=== PATIENT | male | born 1990 | race Caucasian/White ===

== ENCOUNTER 2024-06-23 13:58 | Emergency (ER) | payer MEDICAID ==
[~2024-06-23] VITALS: Ht 175.3 cm; Wt 90.0 kg
[2024-06-23 14:06] VITALS: O2SAT 99
[2024-06-23 14:14] VITALS: TEMP 36.78072
[2024-06-23] MEDS: SODIUM CHLORIDE 0.9% 1,000 ML IV ONE (14:44)
[2024-06-23] MEDS: METOCLOPRAMIDE HCL 10MG/2ML VIAL IV STA (14:44)
[2024-06-23 15:08] LABS: CLARITY URINE CLEAR (CLEAR); COLOR URINE YELLOW (YELLOW); GLUCOSE URINE NEGATIVE (NEGATIVE); KETONES URINE 4+ (NEGATIVE); LEUKOCYTE ESTERASE URINE NEGATIVE (NEGATIVE); NITRITE URINE NEGATIVE (NEGATIVE); OCCULT BLOOD URINE 3+ (NEGATIVE); PH URINE 5.5 (4.5-8.0); PROTEIN URINE 1+ (NEGATIVE); SPECIFIC GRAVITY URINE 1.031 (1.005-1.030)
[2024-06-23 15:46] LABS: BASOPHILS % 0.5 % (0.0-2.0); EOSINOPHILS % 0.1 % (0.0-5.0); HEMOGLOBIN. 16.4 g/dL (14.0-18.0); LYMPHOCYTES % 9.8 % (20.0-50.0); MEAN CORPUSCULAR HEMOGLOBIN 30.7 pg (28.0-32.0); MEAN CORPUSCULAR HGB CONC 33.5 g/dL (31.0-37.0); MEAN CORPUSCULAR VOLUME 91.6 fL (80.0-94.0); MEAN PLATELET VOLUME 7.8 fl (7.4-10.4); MONOCYTES % 8.6 % (2.0-8.0); PLATELET 319 x1000/uL (130-400); RED BLOOD CELL COUNT 5.35 mill/uL (4.7-6.1); RED CELL DISTRIBUTION WIDTH 13.3 % (11.6-14.6); WHITE BLOOD COUNT 16.3 x1000/uL (4.5-11.0)
[2024-06-23 15:48] LABS: BACTERIA URINE 1+; SQUAMOUS EPITHELIAL CELL URINE FEW /lpf (RARE/1+); WBC URINE 0-2 /hpf (0-2)
[2024-06-23 15:51] LABS: CHLORIDE 99 mEq/L (98-107); POTASSIUM 4.6 mEq/L (3.5-5.1); SODIUM 133 mEq/L (136-145)
[2024-06-23 15:52] LABS: CARBON DIOXIDE 15 mEq/L (21-32)
[2024-06-23 15:53] LABS: CALCIUM 11.1 mg/dL (8.7-10.4)
[2024-06-23 15:57] LABS: CREATININE 1.1 mg/dL (0.6-1.3); GLUCOSE 99 mg/dL (70-105)
[2024-06-23 15:58] LABS: UREA NITROGEN BLOOD 10 mg/dL (9-23)
[2024-06-23] MEDS: LACTATED RINGERS 2,000 ML IV STA (16:13)
[2024-06-23 17:24] LABS: HCG SCREEN NEGATIVE
[2024-06-23] MEDS ORDERED: AZIT500T8 MT (18:39)
[2024-06-23] MEDS ORDERED: ONDA4TAB50 MT (18:39)
[2024-06-23] MEDS: LEVOFLOXACIN 500MG PREMIX 100 ML IV ONE (18:40)
[2024-06-23] MEDS: LORAZEPAM 2MG/ML INJ IV ONE (18:40)
[2024-06-23 18:58] VITALS: BP 136/97; PULSE 114; RESP 18; O2SAT 96
[2024-06-23] MEDS ORDERED: IOHEXOL-300 100 ML BOTTLE ONE (19:08)
== END 2024-06-23 19:02 | disposition left against medical advice (07) ==
LOC: ER 14:08 → EDBEDREQ 17:43 → ER 19:02
DX: R19.7 Diarrhea, unspecified (principal); R11.10 Vomiting, unspecified
CPT/HCPCS: 80048; 81003; 84703; 83690; 85025; 36415; 74177; 96361; 96374; 99291; Q9967; J2765; J7120; J7030; Z7610; J1956; J2060